=== PATIENT | female | born 1980 | race Two or more races ===

== ENCOUNTER 2024-11-06 05:43 | Emergency (ER) | payer OTHER ==
[~2024-11-06] VITALS: Ht 157.5 cm; Wt 72.6 kg
[2024-11-06] MEDS ORDERED: COZAAR50 MG (05:51)
[2024-11-06] MEDS ORDERED: ATORVASTATIN CA20 MG (05:51)
[2024-11-06] MEDS ORDERED: TOPROL XL25 M1 (05:52)
[2024-11-06] MEDS ORDERED: RINGERS SOLUTION,LACTATED 1,000 ML IV ONE (07:30)
[2024-11-06 08:27] LABS: HEMATOCRIT 30.3 % (36.0-45.00); HEMOGLOBIN 9.1 g/dL (12.0-15.00); MEAN CELL VOLUME 66.6 fL (80.00-100.00); MEAN CORPUSCULAR HGB CONC 30.1 g/dl (32.0-36.0); PLATELET COUNT 322 K/uL (150-450); RED BLOOD COUNT 4.55 M/uL (4.00-6.00); RED CELL DISTRIBUTION WIDTH 20.8 % (11.5-14.5)
[2024-11-06 09:16] LABS: PARTIAL THROMBOPLASTIN TIME 28.5 SECONDS (22.0-34.0); PROTHROMBIN TIME 10.9 SECONDS (9.0-11.5)
[2024-11-06 09:35] LABS: ANION GAP 7 (10.0-20.0); BLOOD UREA NITROGEN 8 mg/dL (7-18); BUN CREA RATIO 12 (7.0-25.0); CALCIUM 8.6 mg/dL (8.5-10.1); CARBON DIOXIDE 25 mEq/L (21-32); CHLORIDE 110 mmol/L (98-107); CREATININE SERUM 0.66 mg/dL (0.55-1.02); GFR 97.74; GLUCOSE FASTING 99 mg/dL (65-100); OSMOLALITY SERUM 274 MOSM/KG (275-295); POTASSIUM 3.87 mEq/L (3.5-5.1); SODIUM 138 mmol/L (136-145)
[2024-11-06 10:22] LABS: HCG QUANTITATIVE < 1 mUI/mL (1-3)
== END 2024-11-06 11:24 | disposition home or self-care (01) ==
LOC: ER 05:45
PROVIDERS: General Practice
DX: N93.8 Other specified abnormal uterine and vaginal bleeding (principal); D25.9 Leiomyoma of uterus, unspecified